=== PATIENT | female | born 1960 | race Caucasian/White ===

== ENCOUNTER 2021-02-23 06:36 | Inpatient (IN) ==
--- NOTE | 2021-02-14 13:02 | XRay Report ---
HISTORY: Preop for hernia repair FINDINGS: The lungs are clear. The heart, mediastinum, kendell and pleura are normal. There has been no significant change since 11/11/15 IMPRESSION: Normal chest. Interpreted and Authenticated by: Surinder Grajeda 02/14/21
[2021-02-14 13:55] LABS: Basophils # (Auto) 0.06 K/mcL (0.00-0.20); Basophils % (Auto) 0.8 % (0.0-2.0); Eosinophils # (Auto) 0.11 K/mcL (0.00-0.70); Eosinophils % (Auto) 1.5 % (0.0-7.0); Hematocrit 38.3 % (36.0-48.0); Hemoglobin 12.7 g/dL (12.0-15.0); Lymphocytes # (Auto) 2.59 K/mcL (1.50-4.80); Lymphocytes % (Auto) 34.9 % (15.0-49.0); Mean Corpuscular HGB Conc 33.2 g/dL (31.0-36.0); Monocytes # (Auto) 0.41 K/mcL (0.10-0.90); Monocytes % (Auto) 5.5 % (1.0-12.0); Neutrophils % (Auto) 57.3 % (38.0-78.0); Platelet Count 269 K/mcL (140-440); RBC 3.95 M/mcL (4.00-5.20); WBC 7.4 K/mcL (4.5-11.0)
[2021-02-14 14:17] LABS: Partial Thromboplastin Time 30.7 sec (20.0-37.0); Prothrombin Time 14.2 sec (11.9-14.5)
[2021-02-14 14:30] LABS: Estimated Average Glucose(eAG) 114 mg/dL; Hemoglobin A1C 5.6 % Hgb (4.0-6.0)
[2021-02-14 14:42] LABS: ALT/SGPT 10 U/L (<40); AST/SGOT 15 U/L (<32); Albumin 3.9 gm/dL (3.2-5.2); Albumin/Globulin Ratio 1.1 (1.0-2.3); Alkaline Phosphatase 52 U/L (39-117); Bilirubin,Total 0.3 mg/dL (0.1-1.0); Blood Urea Nitrogen 13 mg/dL (6-20); Carbon Dioxide 28 mmol/L (22-30); Chloride 104 mmol/L (96-108); Globulin 3.6 gm/dL (2.2-3.7); Glomerular Filtration Rate 99; Glucose 71 mg/dL (70-105)
[~2021-02-23 06:36] MED LIST: LEVOFLOXACIN 750 MG/150 ML BAG IV SCH; VANCOMYCIN 1,500 MG in 0.9 % SODIUM CHLORIDE 500 ML IV SCH
[2021-02-23] MEDS ORDERED: ONDANSETRON 4 MG/2 ML VIAL ONE (10:00)
[2021-02-23] MEDS ORDERED: ROCURONIUM 10 MG/ML ML IV ONE (10:00)
[2021-02-23] MEDS ORDERED: fentaNYL 250 MCG/5 ML VIAL IV ONE (10:00)
[2021-02-23] MEDS ORDERED: LIDOCAINE HCL/PF 100 MG/5 ML SYRINGE IV ONE (10:00)
[2021-02-23] MEDS ORDERED: PROPOFOL 200 MG/20 ML VIAL IV ONE (10:00)
[2021-02-23] MEDS ORDERED: SUCCINYLCHOLINE 20 MG/ML ML IV ONE (10:00)
[2021-02-23] MEDS ORDERED: SUGAMMADEX SODIUM 200 MG/2 ML VIAL IV ONE (10:00)
[2021-02-23] MEDS ORDERED: MIDAZOLAM 5 MG/5 ML VIAL ONE (10:00)
[2021-02-23] MEDS ORDERED: DEXAMETHASONE 10 MG/ML VIAL ONE (10:00)
[2021-02-23] MEDS ORDERED: GLYCOPYRROLATE 0.2 MG/ML VIAL IV ONE (10:00)
[2021-02-23] MEDS ORDERED: BACITRACIN 50,000 UNIT VIAL IR ONE (10:45)
[2021-02-23] MEDS ORDERED: ATROPINE SULFATE 0.4 MG/ML VIAL IV PRN (11:21)
[2021-02-23] MEDS ORDERED: ONDANSETRON 4 MG/2 ML VIAL IV PRN ×2 (11:21→12:01)
[2021-02-23] MEDS ORDERED: NALOXONE HCL 0.4 MG/ML VIAL IV PRN (11:21)
[2021-02-23] MEDS ORDERED: METOPROLOL TARTRATE 5 MG/5 ML VIAL IV PRN (11:21)
[2021-02-23] MEDS ORDERED: fentaNYL 100 MCG/2 ML VIAL IV PRN (11:21)
[2021-02-23] MEDS ORDERED: METHOCARBAMOL 1,000 MG/10 ML VIAL IV PRN (11:21)
[2021-02-23] MEDS ORDERED: IPRATROPIUM/ALBUTEROL 3 ML AMPUL.NEB NEB PRN (11:21)
[2021-02-23] MEDS ORDERED: ACETAMINOPHEN 1,000 MG/100 ML BAG IV ONE (11:21)
[2021-02-23] MEDS ORDERED: diphenhydrAMINE 50 MG/ML VIAL IV PRN (11:21)
[2021-02-23] MEDS ORDERED: FLUMAZENIL 0.1 MG/ML ML IV PRN (11:21)
[2021-02-23] MEDS ORDERED: HYDROmorphone 0.5 MG/0.5 ML SYRINGE IV PRN (11:21)
[2021-02-23] MEDS ORDERED: ePHEDrine 50 MG/ML AMPUL IV PRN (11:21)
[2021-02-23] MEDS ORDERED: PROMETHAZINE 25 MG/ML VIAL IV PRN (11:21)
[2021-02-23] MEDS ORDERED: LACTATED RINGERS 1,000 ML IV SCH (11:30)
[2021-02-23] MEDS ORDERED: ONDANSETRON 4 MG ODT TABLET SL PRN (12:01)
--- NOTE | 2021-02-23 12:01 | Brief Operative Note ---
Brief Operative Note Date of procedure: 02/23/21 Pre-op diagnosis: incisional hernia ,incarcerated Post-op diagnosis: other (incarceratedincisional hernia) Procedure: incisional hernia repair with partial omentectomy Grafts/Implants: Yes (surgimesh) Anesthesia: GETA Findings: very large incisional hernia with large volume of incarcerated omentum Surgeon: Radha Segura Specimens Removed/Pathology: none sent Condition: stable Disposition: PACU
[2021-02-23] MEDS ORDERED: oxyCODONE HCL 5 MG TABLET PO PRN (12:07)
[2021-02-23] MEDS ORDERED: HYDROmorphone 1 MG/ML SYRINGE IV PRN (12:08)
[2021-02-23] MEDS: MEPERIDINE 25 MG/ML VIAL IV PRN ×2 (12:36→12:42)
[2021-02-23] MEDS: 0.9 % SODIUM CHLORIDE 1,000 ML IV SCH (16:43)
[2021-02-23] MEDS: 0.9 % SODIUM CHLORIDE 10 ML SYRINGE IV SCH ×2 (16:43→21:00)
[2021-02-23] MEDS ORDERED: SENNOSIDES 1 TABLET PO SCH (21:00)
[2021-02-23] MEDS: DOCUSATE SODIUM 100 MG CAPSULE PO SCH (22:30)
[2021-02-24] MEDS: 0.9 % SODIUM CHLORIDE 1,000 ML IV SCH ×4 (02:43→11:51)
[2021-02-24] MEDS: 0.9 % SODIUM CHLORIDE 10 ML SYRINGE IV SCH ×2 (05:30→13:00)
[2021-02-24 06:16] LABS: Basophils # (Auto) 0.01 K/mcL (0.00-0.20); Basophils % (Auto) 0.1 % (0.0-2.0); Eosinophils # (Auto) 0.01 K/mcL (0.00-0.70); Eosinophils % (Auto) 0.1 % (0.0-7.0); Hematocrit 33.3 % (36.0-48.0); Lymphocytes # (Auto) 1.85 K/mcL (1.50-4.80); Lymphocytes % (Auto) 17.4 % (15.0-49.0); Mean Cell Volume 97.1 fL (80.0-100.0); Mean Platelet Volume 9.8 fL (7.4-10.4); Monocytes # (Auto) 0.53 K/mcL (0.10-0.90); Neutrophils % (Auto) 77.4 % (38.0-78.0); Platelet Count 243 K/mcL (140-440); RBC 3.43 M/mcL (4.00-5.20); Red Cell Distribution Width 11.9 % (11.5-14.5); WBC 10.6 K/mcL (4.5-11.0)
[2021-02-24 06:40] LABS: ALT/SGPT 11 U/L (<40); AST/SGOT 22 U/L (<32); Albumin 3.3 gm/dL (3.2-5.2); Alkaline Phosphatase 43 U/L (39-117); Bilirubin,Direct < 0.2 mg/dL (0-0.3); Bilirubin,Total 0.3 mg/dL (0.1-1.0); Blood Urea Nitrogen 7 mg/dL (6-20); Calcium 8.6 mg/dL (8.6-10.4); Carbon Dioxide 29 mmol/L (22-30); Chloride 104 mmol/L (96-108); Globulin 3.2 gm/dL (2.2-3.7); Glomerular Filtration Rate 99; Glucose 105 mg/dL (70-105); Lactate Dehydrogenase 151 U/L (135-225); Phosphorous 4.5 mg/dL (2.5-4.5); Triglycerides 78 mg/dL (<150); Uric Acid 4.9 mg/dL (2.5-8.0)
[2021-02-24] MEDS: DOCUSATE SODIUM 100 MG CAPSULE PO SCH (08:17)
--- NOTE | 2021-02-24 13:11 | Discharge Summary ---
Discharge Provider Provider Patient information: Note initiated : 02/24/21 at 1:06 pm Service Date, if different from initiated Date: [] Patient: Stephy Hall 60 y/o F admitted on 02/23/21 for Incisional Hernia Repair. Chief Complaint: [] Date of admission: 02/23/21 13:07 Discharge date: 02/24/21 Primary care physician: Alondra Crespo Admitting clinician: Radha Segura Attending physician on admission: Radha Segura Attending physician on discharge: Radha Segura Discharging clinician: Radha Segura COURSE Hospital Course Hospital course: 60-year-old female who underwent incisional hernia repair with mesh yesterday. She had a large incisional hernia with omentum and transverse colon incarcerated in the hernia sac. She had multiple hernia sacs. Partial omentectomy was done and the colon was reduced back to the peritoneal cavity. The defect was supported with an underlay mesh and closed primarily with #1 Prolene. She has done well. She is having copious flatus and has no pain. White blood count 10.6, hemoglobin 11, hematocrit 33.3. Inpatient panel is normal. Patient is clinically stable for discharge Discharge diagnosis: . Incarcerated incisional hernia Secondary discharge diagnosis: Hypertension Reason for admission: Postoperative incisional hernia repair Procedures: Incisional hernia repair with mesh Pertinent studies/significant findings: None Complications: None Time Spent with Patient Time attestation: Total time spent providing and/or coordinating discharge services: Physical Examination Vital Signs Vital signs: Temp Pulse Resp BP Pulse Ox 97.8 F 50 L 16 133/73 94 02/24/21 11:35 02/24/21 11:35 02/24/21 11:35 02/24/21 11:35 02/24/21 11:35 General physical appearance General physical exam: well developed, well nourished, no distress, moderate pain and obese Eyes Eye exam: PERRL and normal ocular movement ENT ENT exam: normal nares, normal mucosa, no hearing loss and no congestion Head Head exam IM: Present atraumatic, normal inspection and normocephalic Neck Neck exam: no masses, no bruits, trachea midline, no lymphadenopathy and no venous distension Cardiovascular Cardiovascular exam IM: Present normal rate and rhythm, RRR, +S1 and +S2; Absent gallop and JVD Respiratory Respiratory exam: normal expansion, normal respiratory effort, clear to auscultation and other Abdomen Abdomen: Present tender (Moderate tenderness of incision but otherwise benign abdomen) Integumentary Integumentary: Present no rash, no growths and no abnormal pigmentation Neurologic Neurologic: Present normal coordination and normal sensation Musculoskeletal Musculoskeletal: Present normal gait and normal posture Psychiatric Psychiatric: Present oriented to time, oriented to person, oriented to place, speech is normal and memory intact Discharge Plan Patient/Caregiver Discharge Instructions Activity: increase activity as tolerated Diet: Dysphagia Level 6 Soft & Bite-Sized Foods Prescriptions: New oxycodone-acetaminophen [Endocet] 10-325 mg Tablet 1 tab PO Q4H PRN (Reason: Pain) Qty: 40 RF: 0 Continued allopurinol 100 mg tablet 100 mg PO QDAY RF: 0 biotin 10,000 mcg tablet,disintegrating 10,000 mcg PO QDAY RF: 0 fluticasone propionate [Flonase Allergy Relief] 50 mcg/actuation spray,suspension 1 spray INTRANASAL PRN PRN (Reason: Allergies) RF: 0 levothyroxine 200 mcg tablet 137 mcg PO DAILY RF: 0 digoxin [Digitek] 250 mcg (0.25 mg) Tablet 250 mcg PO QDAY RF: 0 flecainide 50 mg Tablet 50 mg PO Q12H RF: 0 Daily Multivitamin 200-100-500 mcg Capsule 1 cap PO QDAY RF: 0 Follow Up Plan Follow up with: Radha Segura MD [Physician] - 03/08/21 1:00 am (Call office on Friday to verify appointment for 08 March 2021) Patient Disposition: Home, Self-Care Prognosis: Good Rehab Potential: Good I certify that the patient requires SNF services: No Overall status at discharge: patient is progressing back to baseline Discharge Orders: Discharge Order (Routine); Ordered 02/24/21 Ordered By: Radha Segura Pending Pending Pending: Resuscitation Status Full Code Diet Full Liquid Diet Start Sat Feb 24 110 Docusate Sodium (Docusate Sodium 100 Mg Capsule) 100 mg PO BID [facility] Last Admin: 02/24/21 08:17 Dose: 100 mg Documented by: Admin: 02/23/21 22:30 Dose: Not Given Documented by: MICHAEL Sodium Chloride (Sodium Chloride 0.9%) 1,000 mls @ 100 mls/hr IV .Q10H [facility] Last Admin: 02/24/21 11:51 Dose: 100 mls/hr Documented by: Infusion: 02/24/21 11:51 Dose: 100 mls/hr Documented by: Admin: 02/24/21 07:52 Dose: Not Given Documented by: Admin: 02/24/21 02:43 Dose: 100 mls/hr Documented by: Infusion: 02/24/21 02:43 Dose: 100 mls/hr Documented by: Admin: 02/24/21 00:00 Dose: Not Given Documented by: Admin: 02/23/21 16:43 Dose: 100 mls/hr Documented by: LI Oxycodone HCl (Oxycodone Hcl 5 Mg Tablet) 10 mg PO Q4HP PRN; Protocol PRN Reason: Per Pain Protocol Last Admin: 02/24/21 08:17 Dose: 10 mg Documented by: COLE Senna (Sennosides 1 Tablet) 2 tab PO HS IBETH Last Admin: 02/23/21 22:30 Dose: Not Given Documented by: MICHAEL Sodium Chloride (0.9 % Sodium Chloride 10 Ml Syringe) 10 ml IV Q8 IBETH Last Admin: 02/24/21 13:00 Dose: Not Given Documented by: Admin: 02/24/21 05:30 Dose: Not Given Documented by: Admin: 02/23/21 21:00 Dose: Not Given Documented by: Admin: 02/23/21 16:43 Dose: Not Given Documented by: LI Shift Summary 02/24/21 04:18 Shift Summary by Dee Carson 60 yr old F. Full Code. Med/surg. Admitted 02/23 for hernia repair. A+Ox4. Up with SBA to bathroom. NS infusing @ 100 into LFA. Hypertensive overnight, pt states that she thought her prescribed BP home meds were aleve and she has not taken them for 6 months. Midline abd incision with santiago covered by tegaderm, with scant amount serousanguinous drainage. SALMA x1 with small amounts of serousanguinous drainage. Pt not requiring pain meds overnight. Pt states pain is 1/10 and 2/10 with movement. Voiding adequate amounts of bright yellow urine. Bowel tones hypoactive. Flatus present. Full liquid diet, tolerating well. Teds in place. Will update at bedside report. Initialized on 02/24/21 04:18 - END OF NOTE
--- NOTE | 2021-03-02 14:15 | Operative Note ---
DATE OF OPERATION: 02/23/2021 PREOPERATIVE DIAGNOSIS: Incisional hernia, incarcerated. POSTOPERATIVE DIAGNOSIS: Incarcerated incisional hernia. PROCEDURE: Incisional hernia repair with partial omentectomy. SURGEON: Radha Segura M.D. DESCRIPTION OF PROCEDURE: Under general anesthesia, the patient's abdomen was prepped and draped in a sterile field. Infraumbilical midline incision was made. In the subcutaneous tissue, there was a multilobulated, poorly-developed hernia sac. This was developed using electrocautery. It was circumferentially dissected down to the fascia. The sac was opened, and it contained a large volume of incarcerated omentum. The midline incision was extended inferiorly. I tried to reduce part of the omentum back into the peritoneal cavity, but because of incarcerated transverse colon it was very difficult. I, therefore, resected a large volume of the omentum from the transverse colon and discarded it. Once this was done, I was able to reduce the transverse colon back into the peritoneal cavity. Inspection otherwise did not reveal any other fascial defects. The defect was supported with an underlay 7 cm mesh graft. It was sutured circumferentially with interrupted 0 Prolene. The fascia was closed over the mesh using interrupted [id number] sutures of #1 Prolene. Irrigation was carried out. The large subcutaneous defect that was created by the large hernia was drained with a Royce-Chester drain brought out through a separate incision laterally on the left. Subcutaneous tissue was closed in two layers using interrupted 2-0 Monocryl and running 2-0 Monocryl. The skin was closed with santiago. Tegaderm dressing was placed. The drain was secured with 2-0 nylon. The patient tolerated the procedure well. He was awakened, transferred to a bed, and taken to the postanesthetic care unit in stable, satisfactory condition. LCS:stephanie Job ID: [id number] Doc ID: [id number] Radha Segura M.D.
== END 2021-02-24 15:20 | disposition home or self-care (01) | DRG 354 ==
LOC: SUR 06:36 → MEDSUR 13:07
PROVIDERS: ADMIT Family Medicine Adult Medicine; ATTEND Family Medicine Adult Medicine